=== PATIENT | male | born 1955 ===

== ENCOUNTER 2022-10-20 15:34 | Emergency (ER) | payer MEDICARE, SELFPAY ==
--- NOTE | 2022-10-20 16:09 | ED_ITS ---
HPI - Abdominal Pain General Chief Complaint: Abdominal Pain Stated Complaint: Abdominal/Left Side Pain Related Data Allergies Allergy/AdvReac Type Severity Reaction Status Date / Time No Known Allergies Allergy Verified 10/20/22 16:12 [facility] Social History Social History Advance Directives: No Advance Directives Information Provided: No Physical Exam ED Vital Signs: BMI result Body Mass Index 31.9 Course Course Course Narrative: This is rapid medical exam. Deferred additional HPI, ROS, PE to primary provider. 67 yo male w/ history of seizures here with complaints of lower abdominal pain x 6 hrs with chills/sweating with no associated nausea, vomiting, diarrhea, urinary symptoms. Pain improving on arrival to the ER. Will check labs, UA, covid/flu/rsv screen. Medical Decision Making Lab Data Labs: Lab Results 10/20/22 Range/Units 16:24 Influenza Type A (PCR) NEGATIVE (Negative) Influenza Type B (PCR) NEGATIVE (Negative) RSV RNA Qual (PCR) NEGATIVE (Negative) SARS-CoV-2 RNA (RT-PCR) NEGATIVE (Negative) Discharge Plan Discharge Clinical Impression: Abdominal pain Patient Disposition: Elopement Discharge Date/Time: 10/20/22 20:42
[2022-10-20 16:11] VITALS: BP 139/61; PULSE 75; RESP 20; TEMP 36.7; O2SAT 96; BMI 31.9
--- NOTE | 2022-10-20 16:26 | MHC.EDTECH ---
pt states he has seizures when labs are draw. I brought this to charge nurse attention. Rn Jackelyn stated place them in the waiting room. Nasal swab done and placed back in the waiting room
[2022-10-20 17:16] LABS: Influenza A PCR NEGATIVE (Negative); Influenza B PCR NEGATIVE (Negative); Resp Syncy Virus RNA Qual PCR NEGATIVE (Negative); SARS COV2 PCR INHOUSE NEGATIVE (Negative)
--- OUTSIDE RECORDS SUMMARY | 2022-10-20 20:30 | XMS_ITS ---
:1955 Author Support Name Relationship Address Phone Fran Juan Unavailable [address] [place] [address] PROBLEMS Unknown Problems ALLERGIES No Information ENCOUNTERS IMMUNIZATIONS No Known Immunizations SOCIAL HISTORY No smoking Hx information available REASON FOR REFERRAL FUNCTIONAL STATUS PLAN OF CARE VITAL SIGNS MEDICATIONS Unknown Medications PROCEDURES No Known procedures RESULTS No Results REASON FOR VISIT Insurance Providers
== END 2022-10-20 20:42 | disposition left against medical advice (07) ==
LOC: HO.ED 20:28
PROVIDERS: Nurse Practitioner Family; Emergency Provider Emergency Medicine
DX: R10.30 Lower abdominal pain, unspecified (principal); Z20.822 Contact with and (suspected) exposure to COVID-19
CPT/HCPCS: 0241U; 99281; 99283